=== PATIENT | male | born 1995 | race Caucasian/White ===

== ENCOUNTER 2023-07-22 14:45 | Emergency (ER) | payer MEDICAID ==
[~2023-07-22] VITALS: Ht 180.3 cm; Wt 75.0 kg
[2023-07-22 15:16] VITALS: BP 129/80; PULSE 103; RESP 18; TEMP 98.1; O2SAT 99
== END 2023-07-22 16:54 | disposition left against medical advice (07) ==
LOC: ER 15:01
DX: S40.261A Insect bite (nonvenomous) of right shoulder, initial encounter (principal); W57.XXXA Bitten or stung by nonvenomous insect and other nonvenomous arthropods, initial encounter; Y93.89 Activity, other specified; Y92.89 Other specified places as the place of occurrence of the external cause; Y99.8 Other external cause status
CPT/HCPCS: 99281